=== PATIENT | male | born 1985 | race Caucasian/White ===

== ENCOUNTER 2022-05-12 12:13 | Emergency (ER) | payer BC ==
[~2022-05-12] VITALS: Ht 182.9 cm; Wt 68.2 kg
[2022-05-12 12:31] VITALS: BP 134/79
[2022-05-12] MEDS ORDERED: BUPR1FIL3 SL (12:44)
--- NOTE | 2022-05-12 12:52 | NUR ---
Met with patient for Bridge program. Patient has not used since November but is having cravings and wants to start on medication. I talked to [employer] and he is going to start patient on Suboxone. Patient will follow up with Dr. Flood to continue MAT treatment. I gave patient my card if he needs to call me with any questions.
== END 2022-05-12 12:52 | disposition home or self-care (01) ==
LOC: ER 12:14
DX: F11.90 Opioid use, unspecified, uncomplicated (principal)
CPT/HCPCS: 99283